=== PATIENT | female | born 1955 | race Hispanic/Latino ===

== ENCOUNTER → 2018-07-12 | Outpatient (CLI) | payer OTHER ==
[~2018-07-12] MED LIST: BENA5TAB6 PO; CALC-1009 PO; CALC0.253 PO; CITA10TA7 PO; GADODIAMIDE 10 MMOL/20 ML VIAL IV ONE; LEVO100T12 PO; LEVO75TA10 PO; MAGN400T6 PO; MULT-60 PO; OMEP20TA25 PO; POTA10CA44 PO
== END | disposition home or self-care (01) ==
LOC: RAH 09:18
PROVIDERS: ATTEND Internal Medicine Gastroenterology
DX: R93.3 Abnormal findings on diagnostic imaging of other parts of digestive tract (principal); M41.86 Other forms of scoliosis, lumbar region
CPT/HCPCS: 74183; A9579

== ENCOUNTER → 2020-08-30 | Outpatient (CLI) | payer OTHER ==
[~2020-08-30] MED LIST changes: -GADODIAMIDE 10 MMOL/20 ML VIAL IV ONE; -MAGN400T6 PO; +MAGN400T8 PO
== END | disposition home or self-care (01) ==
LOC: RAH 10:32
PROVIDERS: ATTEND Internal Medicine Gastroenterology
DX: R10.13 Epigastric pain (principal); R68.81 Early satiety
CPT/HCPCS: 78264; A9541

== ENCOUNTER → 2022-12-22 | Outpatient (CLI) | payer OTHER ==
[~2022-12-22] MED LIST changes: +BENA5TAB40 PO; -BENA5TAB6 PO; -CITA10TA7 PO; +CITA10TA89 PO; +IOHEXOL-350 75 ML VIAL IV ONE; +MAGN400T56 PO; -MAGN400T8 PO; +OMEP20TA20 PO; -OMEP20TA25 PO; -POTA10CA44 PO; +POTA10CA85 PO
== END | disposition home or self-care (01) ==
LOC: RAH 08:49
PROVIDERS: ATTEND Internal Medicine Gastroenterology
DX: R10.13 Epigastric pain (principal); R10.11 Right upper quadrant pain; M47.15 Other spondylosis with myelopathy, thoracolumbar region; I70.90 Unspecified atherosclerosis
CPT/HCPCS: 74170; Q9967